=== PATIENT | male | born 1995 | race Caucasian/White ===

== ENCOUNTER 2023-06-10 09:42 | Observation (INO) ==
[2023-06-10 10:50] LABS: Basophils # (Auto) 0.03 K/mcL (0.00-0.30); Basophils % (Auto) 0.5 % (0.0-2.0); Eosinophils # (Auto) 0.06 K/mcL (0.00-0.70); Hematocrit 47.8 % (40.1-51.0); Hemoglobin 16.1 g/dL (13.7-17.5); Lymphocytes # (Auto) 0.94 K/mcL (1.50-4.80); Lymphocytes % (Auto) 15.2 % (15.5-49.0); Mean Cell Volume 85.1 fL (80.0-100.0); Mean Corpuscular HGB Conc 33.7 g/dL (31.0-36.0); Mean Platelet Volume 10.4 fL (8.8-12.5); Monocytes # (Auto) 0.36 K/mcL (0.10-0.90); Monocytes % (Auto) 5.8 % (1.0-12.0); Neutrophils % (Auto) 77.5 % (38.0-78.0); Platelet Count 203 K/mcL (140-440); RBC 5.62 M/mcL (4.63-6.08); Red Cell Distribution Width 12.5 % (11.5-14.5); WBC 6.2 K/mcL (4.5-11.0)
[2023-06-10 11:05] LABS: Prothrombin Time 13.7 sec (11.9-14.5)
[2023-06-10 11:23] LABS: ALT/SGPT < 5 U/L (<40); AST/SGOT 23 U/L (<40); Albumin 4.9 gm/dL (3.2-5.2); Albumin/Globulin Ratio 1.7 (1.0-2.3); Alkaline Phosphatase 75 U/L (39-117); Bilirubin,Total 0.7 mg/dL (0.1-1.0); Blood Urea Nitrogen 18 mg/dL (6-20); Calcium 9.9 mg/dL (8.6-10.4); Carbon Dioxide 27 mmol/L (22-30); Chloride 99 mmol/L (96-108); Globulin 2.9 gm/dL (2.2-3.7); Glomerular Filtration Rate 131; Glucose 80 mg/dL (70-105)
[2023-06-10] MEDS ORDERED: CEFEPIME 2 GM VIAL IV ONE (14:04)
[2023-06-10] MEDS ORDERED: VANCOMYCIN 1,000 MG in 0.9 % SODIUM CHLORIDE 250 ML IV ONE (14:10)
[2023-06-10] MEDS ORDERED: HYDROmorphone 0.5 MG/0.5 ML SYRINGE IV PRN (14:40)
[2023-06-10] MEDS ORDERED: IPRATROPIUM/ALBUTEROL 3 ML AMPUL.NEB NEB PRN ×2 (14:40→18:16)
[2023-06-10] MEDS ORDERED: ONDANSETRON 4 MG/2 ML VIAL IV PRN ×2 (14:40→18:16)
[2023-06-10] MEDS ORDERED: fentaNYL 100 MCG/2 ML VIAL IV PRN (14:40)
[2023-06-10] MEDS ORDERED: LACTATED RINGERS 1,000 ML IV SCH (14:45)
[2023-06-10] MEDS ORDERED: LIDOCAINE W/EPI 1% 20 ML VIAL IJ ONE (15:34)
[2023-06-10] MEDS ORDERED: VANCOMYCIN PER PHARMACY IV SCH (18:16)
[2023-06-10] MEDS ORDERED: traZODone HCL 50 MG TABLET PO PRN (18:16)
[2023-06-10] MEDS ORDERED: ACETAMINOPHEN 325 MG TABLET PO PRN (18:16)
[2023-06-10] MEDS ORDERED: 0.9 % SODIUM CHLORIDE 10 ML SYRINGE IV SCH (18:16)
[2023-06-10] MEDS: 0.9 % SODIUM CHLORIDE 1,000 ML IV SCH (19:47)
[2023-06-10] MEDS ORDERED: cefTRIAXone 1 GM VIAL IV SCH (20:00)
[2023-06-10] MEDS: morphine 4 MG/ML VIAL IV PRN (20:11)
[2023-06-10] MEDS: CEFEPIME 1 GM VIAL IV SCH (20:11)
[2023-06-10] MEDS: clonazePAM 0.5 MG TABLET PO SCH (20:12)
[2023-06-10] MEDS: BACLOFEN 10 MG TABLET PO SCH (20:12)
[2023-06-10] MEDS: tiZANidine 4 MG TABLET PO PRN (20:12)
[2023-06-10] MEDS: SENNOSIDES 1 TABLET PO SCH (20:13)
[2023-06-10] MEDS: 0.9 % SODIUM CHLORIDE 10 ML SYRINGE IV SCH (20:13)
[2023-06-10] MEDS: CARBIDOPA/LEVODOPA CR 25/100 TABLET PO SCH (20:13)
[2023-06-10] MEDS: DOCUSATE SODIUM 100 MG CAPSULE PO SCH (20:13)
[2023-06-10] MEDS: VANCOMYCIN 1,000 MG in 0.9 % SODIUM CHLORIDE 250 ML IV SCH (22:00)
[2023-06-11] MEDS ORDERED: ONDANSETRON 4 MG/2 ML VIAL ONE ×2 (00:06→06:06)
[2023-06-11] MEDS: ONDANSETRON 4 MG/2 ML VIAL IV PRN ×4 (00:08→19:50)
[2023-06-11] MEDS: morphine 4 MG/ML VIAL IV PRN ×2 (03:16→08:53)
[2023-06-11] MEDS: 0.9 % SODIUM CHLORIDE 10 ML SYRINGE IV SCH ×3 (06:01→20:16)
[2023-06-11] MEDS: VANCOMYCIN 1,000 MG in 0.9 % SODIUM CHLORIDE 250 ML IV SCH (06:02)
[2023-06-11] MEDS: CARBIDOPA/LEVODOPA CR 25/100 TABLET PO SCH ×3 (07:24→20:12)
[2023-06-11] MEDS: tiZANidine 4 MG TABLET PO PRN (07:24)
[2023-06-11] MEDS: clonazePAM 0.5 MG TABLET PO SCH (07:24)
[2023-06-11] MEDS: 0.9 % SODIUM CHLORIDE 1,000 ML IV SCH ×2 (08:11→08:38)
[2023-06-11] MEDS ORDERED: tiZANidine 4 MG TABLET PO PRN (08:30)
[2023-06-11 08:32] LABS: Basophils # (Auto) 0.02 K/mcL (0.00-0.30); Basophils % (Auto) 0.2 % (0.0-2.0); Eosinophils # (Auto) 0 K/mcL (0.00-0.70); Eosinophils % (Auto) 0 % (0.0-7.0); Hematocrit 47.3 % (40.1-51.0); Hemoglobin 14.6 g/dL (13.7-17.5); Lymphocytes # (Auto) 0.66 K/mcL (1.50-4.80); Mean Cell Volume 92.9 fL (80.0-100.0); Mean Corpuscular HGB Conc 30.9 g/dL (31.0-36.0); Mean Platelet Volume 10.8 fL (8.8-12.5); Monocytes # (Auto) 0.47 K/mcL (0.10-0.90); Neutrophils % (Auto) 87.4 % (38.0-78.0); Platelet Count 188 K/mcL (140-440); RBC 5.09 M/mcL (4.63-6.08); Red Cell Distribution Width 12.7 % (11.5-14.5); WBC 9.5 K/mcL (4.5-11.0)
[2023-06-11] MEDS: METOCLOPRAMIDE 10 MG/2 ML VIAL IV PRN ×2 (08:32→15:00)
[2023-06-11 08:53] LABS: ALT/SGPT 12 U/L (<40); AST/SGOT 27 U/L (<40); Albumin 4.4 gm/dL (3.2-5.2); Albumin/Globulin Ratio 1.8 (1.0-2.3); Alkaline Phosphatase 70 U/L (39-117); Blood Urea Nitrogen 16 mg/dL (6-20); Carbon Dioxide 17 mmol/L (22-30); Chloride 101 mmol/L (96-108); Globulin 2.5 gm/dL (2.2-3.7); Glomerular Filtration Rate 131; Glucose 59 mg/dL (70-105)
[2023-06-11] MEDS ORDERED: POLYETHYLENE GLYCOL 3350 17 GM PACKET PO SCH (09:00)
[2023-06-11] MEDS: CALCIUM W/VIT D3 500 MG TABLET PO SCH (10:36)
[2023-06-11] MEDS: BACLOFEN 10 MG TABLET PO SCH ×4 (10:37→20:13)
[2023-06-11] MEDS: CEFEPIME 1 GM VIAL IV SCH ×2 (10:37→20:16)
[2023-06-11] MEDS: DOCUSATE SODIUM 100 MG CAPSULE PO SCH ×2 (10:37→20:12)
[2023-06-11] MEDS: ASCORBIC ACID 500 MG TABLET PO SCH (10:37)
[2023-06-11] MEDS: LACTOBACILLUS 1 CAPSULE PO SCH (10:37)
[2023-06-11] MEDS: OMEPRAZOLE 20 MG CAPSULE PO SCH (10:37)
[2023-06-11] MEDS: POLYETHYLENE GLYCOL 3350 17 GM PACKET PO SCH (10:38)
[2023-06-11] MEDS ORDERED: BACLOFEN 10 MG TABLET PO ONE (10:45)
[2023-06-11] MEDS ORDERED: ACETAMINOPHEN 1,000 MG/100 ML BAG IV PRN (12:19)
[2023-06-11] MEDS: DEXTROSE 5%-1/2NS W/10MEQ KCL 1,000 ML IV SCH (13:56)
[2023-06-11] MEDS: clonazePAM 1 MG TABLET PO SCH (15:28)
[2023-06-11] MEDS: tiZANidine 4 MG TABLET PO SCH ×2 (15:29→20:12)
[2023-06-11] MEDS ORDERED: clonazePAM 0.5 MG TABLET PO SCH (15:30)
[2023-06-11] MEDS: SENNOSIDES 1 TABLET PO SCH (20:12)
[2023-06-12] MEDS: morphine 4 MG/ML VIAL IV PRN ×2 (02:34→10:55)
[2023-06-12] MEDS: DEXTROSE 5%-1/2NS W/10MEQ KCL 1,000 ML IV SCH (04:07)
[2023-06-12] MEDS: 0.9 % SODIUM CHLORIDE 10 ML SYRINGE IV SCH ×2 (05:02→14:20)
[2023-06-12] MEDS: tiZANidine 4 MG TABLET PO SCH (07:38)
[2023-06-12] MEDS: OMEPRAZOLE 20 MG CAPSULE PO SCH (07:38)
[2023-06-12] MEDS: clonazePAM 1 MG TABLET PO SCH (07:38)
[2023-06-12] MEDS: CARBIDOPA/LEVODOPA CR 25/100 TABLET PO SCH (07:38)
[2023-06-12 08:58] LABS: Hematocrit 43.6 % (40.1-51.0); Hemoglobin 14.2 g/dL (13.7-17.5); Mean Cell Volume 88.3 fL (80.0-100.0); Mean Corpuscular HGB Conc 32.6 g/dL (31.0-36.0); Mean Platelet Volume 10.5 fL (8.8-12.5); Platelet Count 164 K/mcL (140-440); RBC 4.94 M/mcL (4.63-6.08); Red Cell Distribution Width 12.7 % (11.5-14.5); WBC 6.5 K/mcL (4.5-11.0)
[2023-06-12 09:39] LABS: ALT/SGPT 14 U/L (<40); AST/SGOT 21 U/L (<40); Albumin/Globulin Ratio 1.7 (1.0-2.3); Alkaline Phosphatase 61 U/L (39-117); Bilirubin,Direct < 0.2 mg/dL (0-0.3); Bilirubin,Total 0.9 mg/dL (0.1-1.0); Blood Urea Nitrogen 8 mg/dL (6-20); Calcium 8.7 mg/dL (8.6-10.4); Carbon Dioxide 25 mmol/L (22-30); Chloride 105 mmol/L (96-108); Globulin 2.3 gm/dL (2.2-3.7); Glomerular Filtration Rate 139; Glucose 107 mg/dL (70-105); Lactate Dehydrogenase 180 U/L (135-225); Phosphorous 1.6 mg/dL (2.5-4.5); Triglycerides 55 mg/dL (<150); Uric Acid 5.8 mg/dL (2.5-8.0)
[2023-06-12] MEDS: ASCORBIC ACID 500 MG TABLET PO SCH (10:07)
[2023-06-12] MEDS: DOCUSATE SODIUM 100 MG CAPSULE PO SCH (10:07)
[2023-06-12] MEDS: CALCIUM W/VIT D3 500 MG TABLET PO SCH (10:07)
[2023-06-12] MEDS: BACLOFEN 10 MG TABLET PO SCH (10:07)
[2023-06-12] MEDS: LACTOBACILLUS 1 CAPSULE PO SCH (10:08)
[2023-06-12] MEDS: POLYETHYLENE GLYCOL 3350 17 GM PACKET PO SCH (10:08)
[2023-06-12] MEDS: CEFEPIME 1 GM VIAL IV SCH (10:08)
[2023-06-12 10:24] LABS: Lymphocytes % 23 % (15-49); Monocytes % (Manual) 6 % (1-12); Platelet Estimate NORMAL (Normal); RBC Morphology NORMAL (Normal); Segmented Neutrophils % 71 % (38-78)
[2023-06-12] MEDS ORDERED: POTASSIUM PHOSPHATE 40 MEQ in DEXTROSE 5% IN WATER 500 ML IV ONE (10:57)
[2023-06-12] MEDS ORDERED: PHOSPHORUS 250 MG TABLET PO ONE (10:58)
== END 2023-06-12 15:05 | disposition home or self-care (01) ==
LOC: ED 09:42 → SUR 13:34 → INTOOBSV 17:02 → MEDSUR 17:02
PROVIDERS: ADMIT Internal Medicine; ATTEND Internal Medicine